=== PATIENT | male | born 1995 | race American Indian/Alaskan Native ===

== ENCOUNTER 2017-03-28 17:36 | Emergency (ER) | payer MEDICAID, OTHER ==
--- NOTE | 2017-03-28 19:16 | C.PDOC ---
History Of Present Illness 22 yr old male presents to the ER with complaints of sore throat and difficulty swallowing for 1 day. Patient denies sick contact, fever, chills, cough, nausea , vomiting, back pain, headache or neck pain. Time Seen by Provider: 03/28/17 18:11 Chief Complaint (Nursing): ENT Problem History Per: Patient History/Exam Limitations: None Onset/Duration Of Symptoms: Days (1) Current Symptoms Are (Timing): Still Present Past Medical History Reviewed: Historical Data, Nursing Documentation, Vital Signs Vital Signs: Last Vital Signs Temp 98.4 F 03/28/17 20:45 Pulse 78 03/28/17 20:45 Resp 20 03/28/17 20:45 BP 138/78 03/28/17 20:45 Pulse Ox 99 03/28/17 20:45 Family History: States: No Known Family Hx - Social History Hx Alcohol Use: No Hx Substance Use: No - Immunization History Hx Tetanus Toxoid Vaccination: No Review Of Systems Except As Marked, All Systems Reviewed And Found Negative. Constitutional: Negative for: Fever, Chills ENT: Positive for: Throat Pain (Sore throat ), Other (Difficulty swallowing ) Respiratory: Negative for: Cough Gastrointestinal: Negative for: Nausea, Vomiting Musculoskeletal: Negative for: Neck Pain, Back Pain Neurological: Negative for: Headache Physical Exam - Physical Exam Appears: Well, Non-toxic, No Acute Distress Skin: Warm, Dry Head: Atraumatic, Normacephalic Oral Mucosa: Moist Tongue: Normal Appearing Throat: Erythema, No Exudate, No Drooling, No Mass, Other (Uvula is erythematous and enlarged. ) Neck: Normal, Normal ROM, Supple Lymphatic: Adenopathy (Few tender submandipular nodes. ) Chest: Symmetrical, No Tenderness Cardiovascular: Rhythm Regular, No Murmur Respiratory: Normal Breath Sounds, No Rales, No Rhonchi, No Stridor, No Wheezing Extremity: Normal ROM, No Swelling Neurological/Psych: Oriented x3, Normal Speech, Normal Motor ED Course And Treatment O2 Sat by Pulse Oximetry: 98 Medical Decision Making Medical Decision Making: PLAN: * Rapid Strep * Motrin PO 837 pm pt feeling beeter after ibupforen nd decadron. able to swallow amox capulse. will d/c with amox and close clinic follow up. Disposition Counseled Patient/Family Regarding: Diagnosis, Need For Followup, Rx Given - Disposition Referrals: [facility] [Outside] [facility] [Outside] Disposition: HOME/ ROUTINE Disposition Time: 20:38 Condition: IMPROVED Additional Instructions: Gargle with warm salty water several times a day. Tylenol or Motrin for pain. Take antibiotic as prescribed. FOllow up in medical clinic; return to ER for any worsening symptoms. Prescriptions: Amoxicillin [Amoxil 500 mg Cap] 500 mg PO TID #21 cap Instructions: Pharyngitis (ED), Uvulitis (ED) Print Language: CROATIAN - Clinical Impression Clinical Impression: Uvulitis - PA / [employer] SERVICES SPECIALIST / Resident Statement MD/DO has reviewed & agrees with the documentation as recorded. - Scribe Statement The provider has reviewed the documentation as recorded by the Scribe Rosa Rivas All medical record entries made by the Scribe were at my direction and personally dictated by me. I have reviewed the chart and agree that the record accurately reflects my personal performance of the history, physical exam, medical decision making, and the department course for this patient. I have also personally directed, reviewed, and agree with the discharge instructions and disposition.
[2017-03-28] MEDS ORDERED: Dexamethasone 4 mg/1 ml ONE ×2 (20:07→20:08)
[2017-03-28 20:46] VITALS: BP 138/78; PULSE 78; RESP 20; TEMP 98.4
[2017-03-28 23:50] VITALS: O2SAT 98
== END 2017-03-28 20:45 | disposition home or self-care (01) ==
LOC: C.ER 17:36
DX: K12.2 Cellulitis and abscess of mouth (principal)
CPT/HCPCS: 87070; 87430; 96372; 99283; J1100